=== PATIENT | male | born 1995 | race Caucasian/White ===

== ENCOUNTER 2017-05-11 15:43 | Emergency (ER) | payer SELFPAY ==
[~2017-05-11] VITALS: Ht 182.9 cm; Wt 80.0 kg
[~2017-05-11 15:43] MED LIST: ADDE20CA OR
[2017-05-11 15:44] VITALS: BP 128/66; PULSE 89; RESP 15; TEMP 98.4; O2SAT 95
--- NOTE | 2017-05-11 16:23 | RADRPT ---
EXAM DATE/TIME: 05/11/2017 16:04 [place] COMPARISON: No previous studies available for comparison. INDICATIONS : Right ankle pain, fall down stairs. MEDICAL HISTORY : None. SURGICAL HISTORY : None. ENCOUNTER: Initial ACUITY: 1 day PAIN SCORE: 8/10 LOCATION: Right lateral ankle FINDINGS: Three view exam was performed of the right ankle. The bony structures are in normal alignment. No e vidence of fracture, dislocation. There is soft tissue swelling. The ankle mortise is intact. No ra diopaque foreign bodies are seen. Bony mineralization is normal. CONCLUSION: Soft tissue lung without fracture. John Montoya MD on May 11, 2017 at 16:21 Board Certified Radiologist. This report was verified electronically.
--- NOTE | 2017-05-11 16:39 | PD ---
HPI Chief Complaint: Injury Time Seen by Provider: 16:11 Travel History International Travel<30 days: No Contact w/Intl Traveler<30days: No Traveled to known affect area: No History of Present Illness HPI 21-year-old male presents the emergency department with injury to the right ankle/foot 5 days prior to arrival. Patient states he was helping his friend move when he was pushing a bureau and stepped twisting his right lateral foot. Since that time he's had pain, swelling, and ecchymosis. More pain with ambulation. He has been using a cane. He denies any numbness or tingling. He has no other injury. Pain is about a 7 out of 10 with ambulation. He has no known drug allergies. PFSH Past Medical History ADHD: Yes (ADHD) Cancer: No Cardiovascular Problems: No Diabetes: No Psychiatric: No Respiratory: Yes (ASTHMA) Migraines: No Seizures: No Thyroid Disease: No Ulcer: No Social History Alcohol Use: Yes (USED ONCE) Tobacco Use: No Substance Use: No Allergies-Medications (Allergen,Severity, Reaction): Coded Allergies: No Known Allergies (Verified Adverse Reaction, Unknown, 05/11/17) Reported Meds & Prescriptions Reported Meds & Active Scripts Active Reported Adderall Xr (Amphetamine/Dextroamphetamine) 20 Mg Cap 20 Mg OR Q 8AM Review of Systems Except as stated in HPI: all other systems reviewed are Neg General / Constitutional: No: Fever Eyes: No: Visual changes HENT: No: Headaches Cardiovascular: No: Chest Pain or Discomfort Respiratory: No: Shortness of Breath Gastrointestinal: No: Abdominal Pain Genitourinary: No: Dysuria Musculoskeletal: Positive: Arthralgias, Limited ROM, Pain (see history of present illness) Skin: No Rash Neurologic: No: Weakness Psychiatric: No: Depression Endocrine: No: Polydipsia Hematologic/Lymphatic: No: Easy Bruising Physical Exam Narrative GENERAL: Patient appears mild distress, limping with ambulation. SKIN: Warm and dry. Normal color. Normal turgor. Patient has dependent ecchymosis to the right lateral foot. HEAD: Atraumatic. Normocephalic. EYES: Pupils equal and round. No scleral icterus. No injection or drainage. ENT: No nasal bleeding or discharge. Mucous membranes pink and moist. Pharynx is clear. Airway is patent. NECK: Trachea midline. Supple and nontender. CARDIOVASCULAR: Regular rate and rhythm. RESPIRATORY: No accessory muscle use. Clear to auscultation. Breath sounds equal bilaterally. MUSCULOSKELETAL: Extremities without clubbing, cyanosis, or edema. No obvious deformities. Patient has mild to moderate swelling over the right lateral foot below the malleolus. He has no tenderness with palpation of the right lateral malleolus however. It is localized to the dorsal lateral posterior foot. Neurovascular exam distally is normal. Dorsiflexion and plantar flexion are limited secondary to pain. NEUROLOGICAL: Awake and alert. No obvious cranial nerve deficits. Motor grossly within normal limits. Five out of 5 muscle strength in the arms and legs. Normal speech. PSYCHIATRIC: Appropriate mood and affect; insight and judgment normal. Data Data Last Documented VS Vital Signs Date Time Temp Pulse Resp B/P (MAP) Pulse Ox O2 Delivery O2 Flow Rate FiO2 05/11/17 15:44 98.4 89 15 128/66 (86) 95 Orders Orders Ankle, Complete ([id number]) (05/11/17 ) Splint Or Brace Apply/Monitor (05/11/17 16:35) Crutches (05/11/17 16:35) MDM Medical Decision Making Medical Screen Exam Complete: Yes Emergency Medical Condition: Yes Differential Diagnosis Ankle sprain. Foot sprain. Fracture. Narrative Course X-ray of the right foot and ankle are obtained. No acute fractures noted per radiologist. Patient is placed in an Aircast splint and Wing bandage, as well as crutches for ambulation. Given ibuprofen 600 mg 4 times a day when necessary #40. The patient should ice the area frequently. Patient can ambulate as tolerated. Follow up if symptoms do not improve or worsen as needed. Diagnosis Primary Impression: Moderate right ankle sprain Qualified Codes: S93.401A - Sprain of unspecified ligament of right ankle, initial encounter Patient Instructions: Ankle Sprain (ED), Ankle Sprain Exercises (GEN), Ankle Stirrup Splint (ED), Crutch Instructions (ED), General Instructions Additional Instructions: No acute fractures noted per radiologist. Patient is placed in an Aircast splint and Wing bandage, as well as crutches for ambulation. Given ibuprofen 600 mg 4 times a day when necessary #40. The patient should ice the area frequently. Patient can ambulate as tolerated. Follow up if symptoms do not improve or worsen as needed. Med/Other Pt SpecificInfo: Prescription(s) given Disposition: 01 DISCHARGE HOME Condition: Stable Alistair Galicia May 11, 2017 16:39
== END 2017-05-11 17:05 | disposition home or self-care (01) ==
LOC: NEPD 15:43
DX: S93.401A Sprain of unspecified ligament of right ankle, initial encounter (principal); X50.1XXA Overexertion from prolonged static or awkward postures, initial encounter; F90.9 Attention-deficit hyperactivity disorder, unspecified type; J45.909 Unspecified asthma, uncomplicated
CPT/HCPCS: 73610; 99283; E0113; L1906